=== PATIENT | male | born 1945 | race Caucasian/White ===

== ENCOUNTER → 2017-02-19 | Outpatient (CLI) | payer BC, MEDICARE ==
[~2017-02-19] MED LIST: AVPAK LEVETIRA PO; BACTRIM DS 8001 TA1 PO; INSULIN-HUMA100 U/ML; KEFLEX500 MG PO; KEPPRA500 MG PO; LANTUS100 U/ML SC; LASIX20 MG PO; LEADER ASPIRIN81 MG PO; LISINOPRIL20 MG PO; METOPROLOL SR50 MG PO; NORVASC5 MG PO; VICODIN 500 MG-1 TAB PO; VOLTAREN50 M1 PO
== END | disposition home or self-care (01) ==
LOC: WOUNDCARE 02:16
DX: E11.621 Type 2 diabetes mellitus with foot ulcer (principal); L97.411 Non-pressure chronic ulcer of right heel and midfoot limited to breakdown of skin

== ENCOUNTER → 2017-02-24 | Outpatient (CLI) | payer BC, MEDICARE | END | disposition home or self-care (01) | LOC: WOUNDCARE 02:24 | DX: E11.621 Type 2 diabetes mellitus with foot ulcer (principal); L97.411 Non-pressure chronic ulcer of right heel and midfoot limited to breakdown of skin ==

== ENCOUNTER → 2017-03-10 | Outpatient (CLI) | payer BC, MEDICARE | END | disposition home or self-care (01) | LOC: WOUNDCARE 01:27 | DX: E11.621 Type 2 diabetes mellitus with foot ulcer (principal); L97.411 Non-pressure chronic ulcer of right heel and midfoot limited to breakdown of skin ==

== ENCOUNTER → 2018-11-30 | Outpatient (CLI) | payer MEDICARE ==
[~2018-11-30] MED LIST changes: +COREG12.5 M1 PO; +LANTUS SOL100 UNIT/1 SC; +LISINOPRIL10 M1 PO; +TAMSULOSIN HCL0.4 MG PO; +TOPROL XL50 M1 PO
== END | disposition home or self-care (01) ==
LOC: US 17:03
DX: I82.403 Acute embolism and thrombosis of unspecified deep veins of lower extremity, bilateral (principal); M79.605 Pain in left leg; M79.604 Pain in right leg; R60.0 Localized edema

== ENCOUNTER 2019-04-06 10:56 | Inpatient (IN) | payer OTHER ==
[~2019-04-06] VITALS: Ht 185.4 cm; Wt 130.6 kg
[2019-04-06] VITALS (14 sets, daily range): BP systolic 98–210; BP diastolic 44–101
--- NOTE | 2019-04-06 11:00 | NUR ---
CPR INTIATED AT THIS TIME. PATIENT IS PULSELESS WITH ASYSTOLE ON THE MONITOR. DEFIB PADS HAVE BEEN PLACED ONTO PATIENT.
--- NOTE | 2019-04-06 11:03 | NUR ---
PATIENT INTUBATED WITH SIZE 8 ET TUBE AND 27 AT THE LIP.
--- NOTE | 2019-04-06 11:04 | NUR ---
PT WAS ELECTIVE INTUBATION PER CODE BLUE PROTOCOL. VT 500, RR 12, PEEP 5
--- NOTE | 2019-04-06 11:05 | NUR ---
1,000ML OF NORMAL SALINE STARTED ON PRESSURE BAG AT THIS TIME.
--- NOTE | 2019-04-06 11:07 | NUR ---
PULSE CHECK AND PATIENT IS ASYSTOLE ON MONITOR AND PULELESS. COMPRESSIONS STARTED AGAIN.
--- NOTE | 2019-04-06 11:10 | NUR ---
PATIENT FAMILY MADE DR FLORES AWARE OF PATIENT BEING A DNR.
--- NOTE | 2019-04-06 11:10 | NUR ---
PATIENT HAS ROSC AND ABDOMEN APPEARS TO BE PULSATING WELL. BOUNDING PULSE FELT AT THIS TIME ALSO.
--- NOTE | 2019-04-06 11:11 | NUR ---
DR FLORES SPEAKING TO PATIENT FAMILY AT THIS TIME.
--- NOTE | 2019-04-06 11:12 | NUR ---
PATIENT STILL HAS PULSE AT THIS TIME. PATIENT FAMILY STATED HE IS DNR AND THAT HE DID NOT WANT TO BE INTUBATED AND ON THE VENTILATOR. DUE TO PATIENT BEING ALREADY BEING INTUBATED PRIOR TO DR FLORES KNOWING PATIENT WAS A DNR THE FAMILY DECIDED TO LEAVE PATIENT ON VENTILATOR UNTIL THEIR [place] ARRIVES.
--- NOTE | 2019-04-06 11:35 | NUR ---
DR FLORES SPOKE WITH FAMILY STATES THAT THE FAMILY WOULD LIKE PATIENT EXTUBATED AT THIS TIME. PATIENT EXTUBATED BY DR FLORES. NON REBREATHER ON 15L PLACED ONTO PATIENT.
--- NOTE | 2019-04-06 11:35 | NUR ---
PT EXTUBATED AT 1135 AND PLACED ON NRB
--- NOTE | 2019-04-06 11:45 | NUR ---
PATIENT TOLERATING NON REBREATHER WELL AT THIS TIME. PULSE OX IS 100%. FAMILY DECIDING THAT THEY WANT TO HAVE PATIENT PLACED INTO CARE OF HOSPICE SERVICES.
--- NOTE | 2019-04-06 12:10 | NUR ---
DR FLORES HAS [facility]ED [facility].
--- NOTE | 2019-04-06 12:19 | NUR ---
CPR INTIATED AT THIS TIME. PULSE CHECK. PATIENT PULSELESS.
--- NOTE | 2019-04-06 13:40 | NUR ---
PATIENT TAKEN TO 5TH FLOOR BY THIS NURSE NO CHANGE IN PATIENT STATUS.
--- NOTE | 2019-04-06 13:50 | NUR ---
A 73, admitted to 5E, under the services of MAGNO Dupont DO with a diagnosis of RESPIRATORY FAILURE, HYPOGLYCEMIA. Chief complaint is CARDIAC ARREST. Patient arrived via bed from ER. Monitor applied. Initial assessment completed. Vital signs taken and recorded. MAGNO DUPONT DO notified of admission to the unit. Orders received. See assessment for past medical history, medications and allergies. Patient and/or family oriented to unit. [facility] visitation policy reviewed. Clothing/patient valuable form completed. REYNA BLEVINS
--- NOTE | 2019-04-06 14:00 | NUR ---
DR BARRETT STATES TO DISCONTINUE WOUND VAC TO LEFT FOOT.
--- NOTE | 2019-04-06 14:20 | NUR ---
PATIENT DID HAVE BELONGINGS IN POCKETS. AND OTHER FAMILY MEMBERS IN ROOM AT TIME THE STATED THAT SHE WANTED THE MONEY THAT WAS IN PATIENTS POCKET TO TAKE HOME WITH HER. IT WAS REMOVED FROM HIS POCKET AND GIVEN TO AT BEDSIDE. DENTURES ALSO GIVEN TO . TWO BELONGINGS BAGS WENT WITH FAMILY. PATIENT ONLY HAD WOUND VAC WITH HIM UPON LEAVING ER AND BEING TAKEN TO 5TH FLOOR.
--- NOTE | 2019-04-06 14:35 | NUR ---
PT GIVEN MORPHINE AT THIS TIME FOR S/S OF PAIN/AIR HUNGER. WILL MONITOR FOR EFFECTIVENESS. CALL LIGHT IN REACH.
--- NOTE | 2019-04-06 15:35 | NUR ---
MORPHINE EFFECTIVE PER PT.
--- NOTE | 2019-04-06 17:44 | NUR ---
HALDOL GIVEN PER ORDERS ON EMAR FOR S/S OF RESTLESSNESS. FAMILY AT BEDSIDE, WILL MONITOR FOR EFFECTIVENESS. CALL LIGHT IN REACH, SAFETY MEASURES IN PLACE.
--- NOTE | 2019-04-06 18:00 | NUR ---
PT FAMILY REFUSES WOUND CARE PICTURES.
--- NOTE | 2019-04-06 18:20 | NUR ---
PT GIVEN 1 MG ATIVAN AT THIS TIME FOR S/S OF AGITATION/SEIZURE ACTIVITY. WILL MONITOR FOR EFFECTIVENESS. ATIVAN DILUTED WITH 1 ML OF STERILE WATER. PER PHYSICIAN ORDERS, WOUND VAC TO LEFT FOOT REMOVED AND DRESSED PER ORDERS. DRESSING APPLIED TO LFA SKIN TEAR. WOUND ORDERS RECEIVED FROM DR. THOMAS. WILL MONITOR FOR EFFECTIVENESS. CALL LIGHT IN REACH.
--- NOTE | 2019-04-06 18:39 | NUR ---
HALDOL NOT EFFECTIVE AT THIS TIME. IV ATIVAN HAS BEEN GIVEN, MONITORING FOR EFFECTIVENESS. FAMILY AT BEDSIDE.
--- NOTE | 2019-04-06 19:27 | NUR ---
ATIVAN ADMINISTERED FOR RESTLESSNESS AND SEIZURE ACTIVITY. WILL MONITOR FOR EFFECTIVENESS.
--- NOTE | 2019-04-06 19:50 | NUR ---
DR CASTILLO ,IRASEMA AWARE THAT PATIENT NEEDS TO BE DISCHARGED AND READMITTED UNDER HOSPICE.
--- NOTE | 2019-04-06 20:03 | NUR ---
ATIVAN ADMINISTSERED FOR RESTLESSNESS AND YELLING OUT. WILL MONITOR FOR EFFECTIVENESS.
--- NOTE | 2019-04-06 21:09 | NUR ---
PATIENT MEDICATED WITH ATIVAN AND MORPHINE SL FOR COMFORT.WILL MONITOR.
--- NOTE | 2019-04-06 21:15 | NUR ---
Discharge instructions reviewed with patient/family. Patient receptive and verbalizes understanding. Follow-up care arranged. Written instructions given to patient/family. DISCHARGED TO INPATIENT HOSPICE. REYNA REDDY
== END 2019-04-06 21:15 | disposition hospice, home (50) | DRG 208 ==
LOC: ED 10:56 → EDHOLD 13:19 → 5E 13:40
PROVIDERS: ADMIT Family Medicine
PROC: 5A12012 Performance of Cardiac Output, Single, Manual (ICD-10-PCS; principal; 2019-04-06)
PROC: 5A1935Z Respiratory Ventilation, Less than 24 Consecutive Hours (ICD-10-PCS; principal; 2019-04-06)
PROC: 0BH17EZ Insertion of Endotracheal Airway into Trachea, Via Natural or Artificial Opening (ICD-10-PCS; principal; 2019-04-06)
DX: J96.21 Acute and chronic respiratory failure with hypoxia (principal); I46.9 Cardiac arrest, cause unspecified; I13.0 Hypertensive heart and chronic kidney disease with heart failure and stage 1 through stage 4 chronic kidney disease, or unspecified chronic kidney disease; G93.9 Disorder of brain, unspecified; N18.3 Chronic kidney disease, stage 3 (moderate); I87.2 Venous insufficiency (chronic) (peripheral); I89.0 Lymphedema, not elsewhere classified; E11.51 Type 2 diabetes mellitus with diabetic peripheral angiopathy without gangrene; I50.9 Heart failure, unspecified; Z66 Do not resuscitate; J96.22 Acute and chronic respiratory failure with hypercapnia; E11.22 Type 2 diabetes mellitus with diabetic chronic kidney disease; E66.9 Obesity, unspecified; Z51.5 Encounter for palliative care; E11.649 Type 2 diabetes mellitus with hypoglycemia without coma; Z79.4 Long term (current) use of insulin; Z86.73 Personal history of transient ischemic attack (TIA), and cerebral infarction without residual deficits; Z83.3 Family history of diabetes mellitus; Z80.8 Family history of malignant neoplasm of other organs or systems; Z79.899 Other long term (current) drug therapy; Z68.38 Body mass index [BMI] 38.0-38.9, adult

== ENCOUNTER 2019-04-06 21:30 | Inpatient (IN) | payer OTHER, MEDICARE ==
[~2019-04-06] VITALS: Ht 185.4 cm; Wt 130.6 kg
[2019-04-06 21:38] VITALS: BP 135/70
--- NOTE | 2019-04-06 21:38 | NUR ---
HOME WOUND VAC REMOVED BY PREVIOUS RN. FAMILY REFUSES PICTURES AND MEASUREMENTS AT THIS TIME. DRESSING HAD BEEN APPLIED.
--- NOTE | 2019-04-06 21:38 | NUR ---
Time: 2137 A 73 year old MALE admitted to under services of MAGNO DUPONT DO. Pt. arrived via OTHER from [place]. Chief complaint: ACUTE ON CHRONIC RESPIRATORY FAILURE. REYNA REDDY
--- NOTE | 2019-04-06 22:18 | NUR ---
ATIVAN ADMINISTERED FOR AGGITATION. WILL MONITOR FOR EFFECTIVENESS.
--- NOTE | 2019-04-06 23:44 | NUR ---
PATIENT MEDICATED WITH ATIVAN FOR AGGITATION. WILL MONITOR FOR EFFECTIVENESS.
[2019-04-07] VITALS: BP 105/45
--- NOTE | 2019-04-07 02:30 | NUR ---
MORPHINE INCREASED TO 3MG/HR FOR INCREASED DIFFICULTY BREATHING AND RESTLESSNESS.WILL MONITOR.
--- NOTE | 2019-04-07 03:10 | NUR ---
RESPIRATIONS REMAIN 20-32 BREATHS/MIN. ORALLY SUCTIONS FOR THICK YELLOW SECRETIONS FROM BACK OF THROAT. NO SEIZURE ACTIVITY WITNESS. PATIENT SEEMS TO BE RESTING COMFORTABLY ON IV MORPHINE DRIP 3MG/HR. AT BEDSIDE. WILL MONITOR.
--- NOTE | 2019-04-07 04:08 | NUR ---
MORPHINE DRIP REMAINS AT 3MG/HR. PATIENT RESTING COMFORTABLY WITH OCCASIONAL ORAL SUCTIONING FOR MODERATE YELLOW SECRETIONS. WILL MONITOR.
--- NOTE | 2019-04-07 07:50 | NUR ---
Patient resting quietly with no c/o discomfort. Respirations PDS OF APNEA. BP 60/31. PT ON NONREBREATHER. PT SUCTIONED, EYE DROPS ADMINISTERED D/T DRY EYES FRANCISCO LATHAM
[2019-04-07 08:00] VITALS: BP 60/31
--- NOTE | 2019-04-07 08:36 | NUR ---
PT AT THISTIME DR THOMAS AND 2 OTHER NURSES CHECKED. NO PULSE NO BREATHING PT WHITE, IV DRIPS/FLUIDS STOPPED AT THIS TIME. FAMILY IN ROOM. [facility] AARE AND ON THEIR WAY
--- NOTE | 2019-04-07 08:37 | NUR ---
PT IV TAKEN OUT
--- NOTE | 2019-04-07 09:48 | NUR ---
[facility] UPDATED AND NOTIFIEDT THIS TIME
--- NOTE | 2019-04-07 12:15 | NUR ---
PT TAKEN DOWN TO [facility]
--- NOTE | 2019-04-07 12:24 | NUR ---
[facility] STATES THEY RELEASED THE BODY TO THE , NOTIFIED
--- NOTE | 2019-04-07 12:40 | NUR ---
MORPHINE PUMP RETURNED WITH 18.5CC LEFT RETURNED TO PHARMACY VERIFIED WITH KIM GARVIN
--- NOTE | 2019-04-07 14:55 | NUR ---
Nutritional Support Services Note: Pt admitted for Hospice Care. Encourage intake as desired. Regular diet as ordered. Will follow as needed. [place] food preferences. Carlene Francisco Rdn Ld
--- NOTE | 2019-04-07 18:22 | NUR ---
HOME HERE TO PICK PT UP FROM [facility]
== END 2019-04-07 18:51 | disposition expired | DRG 189 ==
LOC: 5E 21:30
PROVIDERS: ADMIT Family Medicine
DX: J96.21 Acute and chronic respiratory failure with hypoxia (principal); J96.22 Acute and chronic respiratory failure with hypercapnia; Z51.5 Encounter for palliative care; I46.9 Cardiac arrest, cause unspecified; R79.89 Other specified abnormal findings of blood chemistry; E66.9 Obesity, unspecified; N18.3 Chronic kidney disease, stage 3 (moderate); I12.9 Hypertensive chronic kidney disease with stage 1 through stage 4 chronic kidney disease, or unspecified chronic kidney disease; E11.22 Type 2 diabetes mellitus with diabetic chronic kidney disease; I87.2 Venous insufficiency (chronic) (peripheral); I89.0 Lymphedema, not elsewhere classified; Z66 Do not resuscitate; E11.649 Type 2 diabetes mellitus with hypoglycemia without coma; Z79.4 Long term (current) use of insulin; Z86.73 Personal history of transient ischemic attack (TIA), and cerebral infarction without residual deficits; Z80.8 Family history of malignant neoplasm of other organs or systems; Z83.3 Family history of diabetes mellitus; Z79.899 Other long term (current) drug therapy; Z68.38 Body mass index [BMI] 38.0-38.9, adult